=== PATIENT | male | born 1995 | race Caucasian/White ===

== ENCOUNTER 2016-09-12 20:31 | Emergency (ER) | payer BC ==
[~2016-09-12] VITALS: Ht 177.8 cm; Wt 75.7 kg
[2016-09-12 20:43] VITALS: TEMP 36.7; Ht 177.8 cm; Wt 75.7 kg
[2016-09-12] MEDS ORDERED: XYLOCAINE 1%/SOD BICARB 20 ML VIAL INFIL ONE (21:45)
[2016-09-12] MEDS ORDERED: ACETAMINOPHEN 500 MG TAB PO STA (21:45)
[2016-09-12] MEDS ORDERED: IBUPROFEN 600 MG TAB PO STA (21:45)
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
[2016-09-12 22:47] VITALS: BP 126/67; PULSE 50; O2SAT 97
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
== END 2016-09-12 22:50 | disposition home or self-care (01) ==
LOC: C.EDB 20:33 → C.EDD 22:50
DX: S01.81XA Laceration without foreign body of other part of head, initial encounter (principal); S69.91XA Unspecified injury of right wrist, hand and finger(s), initial encounter; V19.88XA Pedal cyclist (driver) (passenger) injured in other specified transport accidents, initial encounter

== ENCOUNTER 2016-09-18 17:53 | Emergency (ER) | payer BC ==
[~2016-09-18] VITALS: Ht 177.8 cm; Wt 76.5 kg
[2016-09-18 17:54] VITALS: BP 120/68; PULSE 58; TEMP 36.8; O2SAT 95; Ht 177.8 cm; Wt 76.5 kg
--- NOTE | 2016-09-18 18:03 | EMERGENCY ROOM VISIT NOTE ---
ED Visit Note First contact with patient: 17:56 CHIEF COMPLAINT: Suture removal This patient returns to the ED today for removal of sutures that were placed 6 days ago. There has been no swelling, redness, or drainage from the wound. The patient feels like the laceration is healing well. REVIEW OF SYSTEMS: Head: No headache, injury or neck pain. Skin: No rash, new lesions, or masses. General: No fever or chills, fatigue, loss of appetite , or significant recent weight gain or loss. PMH: The patient is healthy; there is no significant medical or surgical history. SOCIAL HISTORY: Patient lives at home. PHYSICAL EXAM: Vital Signs: Reviewed Nurse's notes. There is a sutured wound on the right chin with no signs of infection. There is no erythema, swelling, or tenderness. EMERGENCY DEPARTMENT COURSE: The sutures were removed without any difficulty and there was no separation of the wound edges. DIAGNOSIS: Healing laceration and suture removal Current/Historical Medications No Active Prescriptions or Reported Meds Allergies Coded Allergies: No Known Allergies (Unverified , 09/12/16) Vital Signs Date Time Temp Pulse Resp B/P (MAP) Pulse Ox O2 Delivery O2 Flow Rate FiO2 09/18/16 17:54 36.8 58 18 120/68 95 Room Air Departure Information Impression Primary Impression: Encounter for removal of sutures Dispostion Home / Self-Care Condition GOOD Prescriptions No Active Prescriptions or Reported Meds Referrals No Doctor, Assigned (PCP) Patient Instructions My [facility] Additional Instructions DISCHARGE INSTRUCTIONS AND TREATMENT: Wash any remaining crusts off of the wound today and resume your normal activities.
== END 2016-09-18 18:07 | disposition home or self-care (01) ==
LOC: C.EDB 17:53 → C.EDD 18:07
DX: S01.80XD Unspecified open wound of other part of head, subsequent encounter (principal); X58.XXXD Exposure to other specified factors, subsequent encounter

== ENCOUNTER 2016-10-01 07:26 | Emergency (ER) | payer BC ==
[~2016-10-01] VITALS: Ht 177.8 cm; Wt 74.4 kg
[2016-10-01 07:35] VITALS: BP 120/79; PULSE 66; TEMP 36.4; O2SAT 96; Ht 177.8 cm; Wt 74.4 kg
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
== END 2016-10-01 08:04 | disposition home or self-care (01) ==
LOC: C.EDB 07:27 → C.EDA 08:04
DX: T63.481A Toxic effect of venom of other arthropod, accidental (unintentional), initial encounter (principal); Y93.55 Activity, bike riding; Y99.8 Other external cause status